=== PATIENT | male | born 1990 ===

== ENCOUNTER 2017-01-19 06:57 | Emergency (ER) | payer OTHER ==
[2017-01-19 07:26] VITALS: BP 126/74; PULSE 58; RESP 16; TEMP 97.4; O2SAT 100
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
== END 2017-01-19 08:47 | disposition home or self-care (01) ==
LOC: SUPCPDRO 06:57 → H.ER 06:57
DX: S80.11XA Contusion of right lower leg, initial encounter (principal); V49.9XXA Car occupant (driver) (passenger) injured in unspecified traffic accident, initial encounter; Y93.9 Activity, unspecified